=== PATIENT | female | born 1990 | race Asian ===

== ENCOUNTER 2016-12-31 09:55 | Outpatient (CLI) | payer OTHER ==
[~2016-12-31] VITALS: Ht 157 cm; Wt 63.6 kg
[~2016-12-31 09:55] MED LIST: CORTISPORIN EAR10 M1 OT; MOTRIN 800800 MG/TAB PO; NO HOME MEDICATIONS; PERCOCET 325 MG1 TA2 PO; PRENATAL1 TA1 PO; SENOKOT S 50 MG1 TAB PO
[2016-12-31 10:08] VITALS: BP 123/79; PULSE 100; TEMP 98
[2016-12-31 10:15] VITALS: BP 123/79; PULSE 100; TEMP 98
[2016-12-31 11:21] VITALS: BP 134/66; PULSE 100
== END 2016-12-31 11:30 | disposition home or self-care (01) ==
LOC: LDRO 09:55
DX: O62.9 Abnormality of forces of labor, unspecified (principal); Z3A.38 38 weeks gestation of pregnancy

== ENCOUNTER 2016-12-31 20:40 | Inpatient (IN) | payer MEDICAID ==
[~2016-12-31] VITALS: Ht 149.9 cm; Wt 63.6 kg
[2016-12-31 21:33] VITALS: BP 132/60; PULSE 129
[2016-12-31 21:45] VITALS: BP 129/57; PULSE 95
[2016-12-31 22:30] VITALS: PULSE 74
[2016-12-31 23:00] VITALS: BP 129/77; PULSE 95
[2017-01-01 00:26] VITALS: BP 122/74; PULSE 92; TEMP 98.3
[2017-01-01 01:31] LABS: BASO % 0.2 % (0.0-2.0); EOS % 0.1 % (0-4.0); GRAN # 11.3 (1.4-6.5); GRAN % 81.3 % (42.2-75.2); HEMATOCRIT 39.9 % (37.0-47.0); HEMOGLOBIN 12.7 g/dl (12.5-16.0); LYMPH # 1.7 (1.2-3.4); MEAN CELL VOLUME 87 fl (80.0-100.0); MEAN CORPUSCULAR HEMOGLOBIN 28 pg (27.0-31.0); MEAN CORPUSCULAR HGB CONC 32 g/dl (33.0-37.0); MEAN PLATELET VOLUME 9.9 fl (7.4-10.4); MONO # 0.8 (0.1-0.6); MONO % 5.9 % (1.7-9.3); PLATELET COUNT 275 K/mm3 (130-400); RED BLOOD COUNT 4.58 M/mm3 (4.10-5.30); REDCELL DISTRIBUTION WIDTH-CV 13.5 % (11.5-14.5); WHITE BLOOD COUNT 13.9 K/mm3 (4.8-10.8)
[2017-01-01 01:40] VITALS: BP 108/59; PULSE 81; TEMP 98.5
[2017-01-01 05:30] VITALS: BP 111/58; PULSE 84; TEMP 98.3
[2017-01-01 11:30] VITALS: BP 118/77; PULSE 86; TEMP 97.9
[2017-01-01 19:00] VITALS: BP 115/71; PULSE 66; TEMP 98.1
[2017-01-02 07:20] VITALS: BP 114/80; PULSE 76; TEMP 97.2
[2017-01-02] MEDS ORDERED: IBU800 M1 PO (11:04)
[2017-01-02] MEDS ORDERED: PERCOCET 325 MG1 TA2 PO (11:04)
== END 2017-01-02 16:25 | disposition home or self-care (01) | DRG 775 ==
LOC: LDRO 20:40 → LDR 20:47 → OB 23:00
PROVIDERS: Obstetrics & Gynecology
PROC: 10E0XZZ Delivery of Products of Conception, External Approach (ICD-10-PCS; principal; 2016-12-31)
PROC: 0U9L0ZZ Drainage of Vestibular Gland, Open Approach (ICD-10-PCS; 2016-12-31)
DX: O99.89 Other specified diseases and conditions complicating pregnancy, childbirth and the puerperium (principal); N75.0 Cyst of Bartholin's gland; Z3A.38 38 weeks gestation of pregnancy; Z37.0 Single live birth
CPT/HCPCS: J2270; J2590

== ENCOUNTER → 2017-01-05 | Outpatient (CLI) | payer MEDICAID ==
[~2017-01-05] MED LIST changes: +IBU800 M1 PO
== END ==
LOC: OLC 12:17
DX: Z39.1 Encounter for care and examination of lactating mother (principal); Z71.89 Other specified counseling